=== PATIENT | female | born 1970 | race Caucasian/White ===

== ENCOUNTER 2018-01-14 17:34 | Emergency (ER) | payer BC ==
[~2018-01-14] VITALS: Ht 162.6 cm; Wt 64.9 kg
[2018-01-14 18:35] VITALS: BP 177/90
[2018-01-14] MEDS ORDERED: TETRACAINE HCL 0.5% OPTH(EYE) SOLN 4ML EACHEYE ONE (19:15)
[2018-01-14] MEDS ORDERED: TETRACAINE HCL 0.5% OPTH(EYE) SOLN 4ML ONE (19:16)
[2018-01-14] MEDS ORDERED: FLUORESCEIN SOD 1 MG TEST STRIP ONE (19:21)
[2018-01-14] MEDS ORDERED: FLUORESCEIN SOD 1 MG TEST STRIP RIGHTEYE ONE (19:30)
== END 2018-01-14 20:19 | disposition home or self-care (01) ==
LOC: ER 17:38
DX: H16.001 Unspecified corneal ulcer, right eye (principal)
CPT/HCPCS: 99283; J7030